=== PATIENT | male | born 1955 | race African-American/Black ===

== ENCOUNTER 2017-05-28 12:59 | Observation (INO) | payer OTHER ==
[~2017-05-28 12:59] MED LIST: CEFAZOLIN 2 GM/50 ML (PMX) 50 ML IVPB; PROPOFOL 200 MG INJ
[2017-05-28] MEDS ORDERED: MEPERIDINE 25 MG INJ IV (13:00)
[2017-05-28] MEDS ORDERED: METOCLOPRAMIDE 10 MG INJ IV (13:00)
[2017-05-28] MEDS ORDERED: OXYCODONE/ACETAMINOPHEN (5/325) TAB PO (13:00)
[2017-05-28] MEDS ORDERED: ONDANSETRON 4 MG INJ IV ×2 (13:00→22:00)
[2017-05-28] MEDS ORDERED: DIPHENHYDRAMINE 50 MG INJ IV (13:00)
[2017-05-28] MEDS ORDERED: LABETALOL HCL 20MG INJ IV (13:00)
[2017-05-28] MEDS ORDERED: EPHEDrine SULFATE 50 MG/5 ML SYG IV (13:00)
[2017-05-28] MEDS ORDERED: HYDROmorphONE (0.2 MG/ML) 10ML SYG IV ×3 (13:00)
[2017-05-28] MEDS ORDERED: hydrALAzine 20 MG INJ IV ×2 (13:00→22:00)
[2017-05-28] MEDS ORDERED: FENTAnyl 50 MCG/ML VIAL IV ×3 (13:00)
[2017-05-28] MEDS ORDERED: FENTAnyl 50 MCG/ML VIAL (14:05)
[2017-05-28] MEDS ORDERED: ROPIVACAINE 0.5 % 30 ML VIAL (14:05)
[2017-05-28] MEDS ORDERED: MIDAZOLAM 1 MG/ML 2 ML INJ ×2 (14:05→14:14)
[2017-05-28] MEDS: BUPIVACAINE 0.25% (MPF) 30 ML INJ (14:16)
[2017-05-28] MEDS: POLYMYXIN/BACITRACIN 1L IRRIG (14:17)
[2017-05-28] MEDS ORDERED: CEFAZOLIN 1 GM INJ (14:40)
[2017-05-28] MEDS ORDERED: ONDANSETRON 4 MG INJ (14:40)
[2017-05-28] MEDS ORDERED: DEXAMETHASONE 4 MG/ML 1 ML INJ (14:41)
[2017-05-28] MEDS ORDERED: KETOROLAC 30 MG INJ (14:41)
[2017-05-28] MEDS ORDERED: PHENYLephrine (100 MCG/ML) 5ML SYG (15:03)
[2017-05-28] MEDS ORDERED: VASOPRESSIN 20 UNITS INJ (15:03)
[2017-05-28] MEDS: SOD CHLORIDE 0.9% 1,000 ML IV (20:05)
[2017-05-28] MEDS: HYDROCODONE/APAP (5/325) TAB PO (20:59)
[2017-05-28] MEDS ORDERED: ACETAMINOPHEN 325 MG TAB PO (22:00)
[2017-05-29] MEDS: morphine 2 MG INJ IV (02:05)
[2017-05-29] MEDS: PANTOPRAZOLE (EC) 40 MG TAB PO (05:49)
[2017-05-29] MEDS: HYDROCODONE/APAP (5/325) TAB PO ×2 (08:49→14:57)
[2017-05-29] MEDS: FUROSEMIDE 20 MG TAB PO (08:50)
[2017-05-29] MEDS: ASPIRIN (EC) 81 MG TAB PO (08:50)
== END 2017-05-29 18:33 | disposition home or self-care (01) ==
LOC: SDS 12:59 → REC 18:54 → MS1 19:46
DX: K40.30 Unilateral inguinal hernia, with obstruction, without gangrene, not specified as recurrent (principal); I11.0 Hypertensive heart disease with heart failure; I50.9 Heart failure, unspecified
CPT/HCPCS: 49507; 93005; 97162

== ENCOUNTER 2017-10-21 08:27 | Day surgery (SDC) | payer OTHER ==
[2017-10-21] MEDS ORDERED: CEFAZOLIN 2 GM/50 ML (PMX) 50 ML IVPB (09:00)
[2017-10-21] MEDS ORDERED: PROPOFOL 20 ML (10:43)
[2017-10-21] MEDS ORDERED: ROPIVACAINE 0.5 % 30 ML VIAL ×2 (10:43→11:58)
[2017-10-21] MEDS ORDERED: CEFAZOLIN 1 GM INJ (10:43)
[2017-10-21] MEDS ORDERED: MIDAZOLAM 1 MG/ML 2 ML INJ (10:43)
[2017-10-21] MEDS ORDERED: PHENYLephrine (100 MCG/ML) 5ML SYG (11:01)
[2017-10-21] MEDS: BUPIVACAINE 0.25% (MPF) 30 ML INJ (11:11)
[2017-10-21] MEDS: POLYMYXIN/BACITRACIN 1L IRRIG (11:11)
[2017-10-21] MEDS ORDERED: ONDANSETRON 4 MG INJ (11:18)
[2017-10-21] MEDS ORDERED: METOCLOPRAMIDE 10 MG INJ (11:19)
[2017-10-21] MEDS ORDERED: KETOROLAC 30 MG INJ (11:19)
[2017-10-21] MEDS ORDERED: DEXAMETHASONE 4 MG/ML 1 ML INJ (11:19)
[2017-10-21] MEDS ORDERED: ACETAMINOPHEN 1000MG/100ML IV 100 ML (11:40)
[2017-10-21] MEDS ORDERED: HYDROmorphONE 1 MG/ML SYG (12:58)
[2017-10-21] MEDS: HYDROmorphONE 1 MG/5 ML IV SYRINGE IV (13:28)
[2017-10-21] MEDS ORDERED: METOCLOPRAMIDE 10 MG INJ IV (13:30)
[2017-10-21] MEDS ORDERED: ONDANSETRON 4 MG INJ IV (13:30)
[2017-10-21] MEDS ORDERED: EPHEDrine SULFATE 50 MG/5 ML SYG IV (13:30)
[2017-10-21] MEDS ORDERED: FENTAnyl 50 MCG/ML VIAL IV ×3 (13:30)
[2017-10-21] MEDS ORDERED: HYDROmorphONE 1 MG/5 ML IV SYRINGE IV ×4 (13:30)
[2017-10-21] MEDS ORDERED: MEPERIDINE 25 MG INJ IV (13:30)
[2017-10-21] MEDS ORDERED: LABETALOL HCL 20MG INJ IV (13:30)
[2017-10-21] MEDS ORDERED: hydrALAzine 20 MG INJ IV (13:30)
[2017-10-21] MEDS ORDERED: DIPHENHYDRAMINE 50 MG INJ IV (13:30)
[2017-10-21] MEDS ORDERED: OXYCODONE/ACETAMINOPHEN (5/325) TAB PO (13:30)
[2017-10-21] MEDS: OXYCODONE/ACETAMINOPHEN (5/325) TAB PO (13:58)
== END 2017-10-21 14:48 | disposition home or self-care (01) ==
LOC: SDS 08:27
DX: M20.21 Hallux rigidus, right foot (principal); D16.31 Benign neoplasm of short bones of right lower limb; M19.071 Primary osteoarthritis, right ankle and foot; E78.5 Hyperlipidemia, unspecified; I10 Essential (primary) hypertension; I50.9 Heart failure, unspecified
CPT/HCPCS: 28291; 88304; 88311